=== PATIENT | male | born 1955 | race Caucasian/White ===

== ENCOUNTER 2017-06-09 16:13 | Emergency (ER) | payer SELFPAY ==
[~2017-06-09] VITALS: Ht 177.8 cm; Wt 106.0 kg
--- NOTE | 2017-06-09 16:13 | NUR ---
PT TO ROOM VIA EMS FOR TREATMENT
[2017-06-09 16:50] LABS: HEMATOCRIT 42.2 % (39.0-50.0); HEMOGLOBIN 14.8 g/dl (14.0-18.0); IMMATURE GRANULOCYTES 0.3 % (0.0-1.0); MEAN CORPUSCULAR HGB 31.2 pG CALC (26.0-32.0); MEAN CORPUSCULAR HGB CONC 35.1 g/L CALC (32.0-36.0); NEUT# 4.01 thou/uL (1.82-7.42); RED BLOOD COUNT 4.74 mill/uL (4.70-6.10); RED CELL DISTRI WIDTH 12.3 % (11.5-15.5)
[2017-06-09 17:07] LABS: PROTHROMBIN TIME 11.1 SECONDS (9.0-12.5)
[2017-06-09 17:09] LABS: ALBUMIN 4.2 g/dL (3.2-5.0); ALKALINE PHOSPHATASE 85 u/l (38-126); ANION GAP 17 (6-22 (CALC)); BUN 17 mg/dL (8-23); BUN/CREATININE RATIO 21 (12-20 (CALC)); CALCIUM 9.2 mg/dL (8.4-10.2); CARBON DIOXIDE 23 mmol/l (22-30); CHLORIDE 103 mmol/l (95-108); CREATININE 0.8 mg/dL (0.7-1.3); GFR > 60 ML/MIN (>=60 (CALC)); GFR FOR AFR.AMER. > 60 ML/MIN (>=60 (CALC)); GLUCOSE 254 mg/dL (82-115); POTASSIUM 3.9 mmol/l (3.5-5.1); SGOT/AST 34 u/l (19-48); SGPT/ALT 50 u/l (11-66); SODIUM 139 mmol/l (137-146); TOTAL PROTEIN 7.6 g/dL (6.3-8.2)
--- NOTE | 2017-06-09 17:29 | NUR ---
PT RESTING QUIETLY ON STRETCHER, VITAL SIGNS STABLE. ADVISED OF CONTINUED WAIT TIME FOR BUSY ER STATUS
--- NOTE | 2017-06-09 19:50 | NUR ---
PT INFORMED OF ADMISSION. PT RELATED HE WAS FEELING BETTER.
--- NOTE | 2017-06-09 20:16 | NUR ---
REPORT CALLED TO [facility].
--- NOTE | 2017-06-09 20:20 | NUR ---
PT UNABLE TO STATE CURRENT HOME MEDS AT THIS TIME. PT RELATED HE WILL CALL WHEN UPSTAIRS.
[2017-06-09 20:50] VITALS: BP 141/75
--- NOTE | 2017-06-09 20:50 | NUR ---
PT DOES NOT WANT TO BE ADMITTED. PT RELATED HE FEELS GOOD AND DOES NOT NEED ADMISSION. Patient decides to leave AMA. Multiple attempts made to ecourage patient to remain here for continued treatment. Explained to patient all risks of leaving against medical advice including . Pt verbalized understanding of all risks. Pt also encouraged to return to [facility] at any time, especially if symptoms continue or become worse. Pt verbalized understanding.
--- NOTE | 2017-06-09 20:53 | NUR ---
DR LIN INFORMED BY [facility].
== END 2017-06-09 20:50 | disposition left against medical advice (07) | DRG 293 ==
LOC: ED 16:13 → ED-I 19:00 → ED 19:46 → MS2 19:47 → ED 19:47
PROVIDERS: Emergency Medicine
DX: I50.9 Heart failure, unspecified (principal); R42 Dizziness and giddiness; R53.1 Weakness; Z91.19 Patient's noncompliance with other medical treatment and regimen